=== PATIENT | female | born 1985 | race Caucasian/White ===

== ENCOUNTER 2018-12-21 03:10 | Inpatient (IN) | payer BC, OTHER ==
[2018-12-21] MEDS ORDERED: Lactated Ringers 1,000 ML IV ONE (03:47)
[2018-12-21] MEDS ORDERED: Indomethacin 25 MG Cap PO ONE (04:12)
[2018-12-21] MEDS: Lactated Ringers 1,000 ML IV SCH ×4 (04:30→18:20)
[2018-12-21] MEDS ORDERED: NIFEdipine 30 MG Tab.ER PO ONE (04:50)
[2018-12-21] MEDS: fentaNYL 100 MCG/2 ML SDV IVPUSH PRN ×4 (04:54→16:31)
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
[2018-12-21] MEDS: NIFEdipine 10 MG Cap PO SCH ×4 (05:29→18:58)
[2018-12-21] MEDS ORDERED: NIFEdipine 10 MG Cap PO SCH (09:00)
[2018-12-21] MEDS: Indomethacin 25 MG Cap PO SCH ×2 (09:35→16:31)
[2018-12-21] MEDS ORDERED: Oxytocin/Normal Saline 30 UNIT/500 ML BAG IV SCH (17:15)
[2018-12-21] MEDS ORDERED: Misoprostol 400 MCG (4 X 100 MCG TAB) RECTAL PRN (17:24)
[2018-12-21] MEDS ORDERED: Tranexamic Acid 1,000 MG in Sodium Chloride 0.9% 100 ML IV PRN (17:24)
[2018-12-21] MEDS ORDERED: Carboprost Tromethamine 250 MCG/1 ML Amp IM PRN (17:24)
[2018-12-21] MEDS ORDERED: Methylergonovine 0.2 MG/1 ML Amp IM PRN (17:24)
[2018-12-21] MEDS ORDERED: Lidocaine 1% 30 ML SDV INJECT PRN (17:24)
[2018-12-21] MEDS ORDERED: Lactated Ringers 500 ML IV ONE (17:24)
[2018-12-21] MEDS ORDERED: Ondansetron 4 MG/2 ML SDV IV PRN (17:24)
[2018-12-21] MEDS ORDERED: Acetaminophen 325 MG Tab PO PRN (17:24)
[2018-12-21] MEDS ORDERED: fentaNYL 100 MCG/2 ML SDV ONE (17:47)
[2018-12-21] MEDS ORDERED: Sodium Bicarbonate 4.2% 2.5 MEQ/5 ML SDV ONE (17:48)
[2018-12-21] MEDS ORDERED: ePHEDrine 50 MG/ML SDV ONE (17:51)
--- NOTE | 2018-12-21 18:14 | PCM.SN ---
- Free Text/Narrative Note: Intrathecal. Sitting position, sterile prep and drape. 1% lidocaine w bicarb for skinwheal to L2 L3 interspace, introducer, 24 ga pencan x 1. Pos CSF, neg heme, neg parasthesia. 20 mcg pf sufenta, 30 mcg pf fentanyl, 0.4 ml pf ns and 6 mg of 0.75% pf bupivacaine injected after CSF aspiration. Pt to L lateral position after 60 seconds. procedure time 1750 to 1820
[2018-12-21] MEDS ORDERED: diphenhydrAMINE 50 MG/ML SDV IVPUSH PRN ×2 (18:19→22:24)
[2018-12-21] MEDS ORDERED: Ondansetron 4 MG/2 ML SDV IVPUSH PRN (22:24)
[2018-12-21] MEDS ORDERED: Naloxone 2 MG/2 ML Syringe IVPUSH PRN (22:24)
[2018-12-21] MEDS ORDERED: diphenhydrAMINE 25 MG Tab PO PRN (22:24)
[2018-12-21] MEDS ORDERED: Morphine PF 30 MG/30 ML PCA Vial IV SCH (22:30)
[2018-12-21] MEDS ORDERED: Simethicone 80 MG Tab.Chew PO PRN (22:56)
[2018-12-21] MEDS ORDERED: Ibuprofen 800 MG Tab PO PRN (22:56)
[2018-12-21] MEDS ORDERED: Docusate Sodium 100 MG Cap PO PRN (22:56)
[2018-12-21] MEDS ORDERED: Benzocaine/Menthol 20%-0.5% Spray 56 GM Canister TOP PRN (22:56)
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
--- NOTE | 2018-12-22 02:54 | DEL ---
DATE: 12/21/2018 PREPROCEDURE DIAGNOSES: 1. 22 and 0/7 weeks' intrauterine . 2. 2, para 0-0-1-0. 3. History of spontaneous x1. 4. labor in second trimester. POSTPROCEDURE DIAGNOSES: 1. 22 and 0/7 weeks' intrauterine . 2. 2, para 0-1-1-0. 3. History of spontaneous x1. 4. labor in second trimester. 5. Delivery of liveborn female , pre-age of viability. BRIEF HISTORY: The patient is a 33-year-old with the above-listed diagnoses, who presented to the hospital just under 21 hours ago with spontaneous onset of contractions. She was evaluated and ruled out for obvious infection; treated with tocolytics including indomethacin and nifedipine, which did control the contractions for a period of time; however, she broke through those medications and went into spontaneous labor. She had an intrathecal in saddle block fashion for pain management; however, that wore off prior to actual delivery. From 4-5 cm on, the patient was provided with DONOR SERVICES MANAGER of morphine for pain control and ultimately had uncomplicated vaginal delivery as below. DETAILS: With the patient in dorsal lithotomy position, she delivered a living female at previability age over intact perineum. During pushing, there was a bulging bag that ruptured and then after that baby delivered in the vertex ROBERT position. Baby was alive and moving at the time of delivery. The 3-vessel umbilical cord was quickly clamped and cut and baby given to the parents for some bonding. Placenta took just under half an hour to deliver by expression, and was inspected and intact. Samples will be taken for analysis as the parents are requesting further evaluation. The labia and vagina were inspected and intact. COMPLICATIONS: None. ESTIMATED BLOOD LOSS: 350 mL. FINDINGS: Liveborn, 22 weeks' gestation female, who did not have any advanced resuscitation as she is previability age. Parents will be allowed to do some bonding, and after the child expires, we will collect the necessary tissue samples to send for chromosomal analysis as parents have requested this be performed. score, weight, and length measurements have not yet been determined. [facility] /[id number] JENNIE
[2018-12-22] MEDS: Famotidine 20 MG/2 ML SDV IVPUSH SCH ×2 (06:51→08:19)
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
--- NOTE | 2018-12-22 17:22 | DISCH ---
ADMITTING DIAGNOSES: 1. labor in the second trimester. 2. History of miscarriage, currently . DISCHARGE DIAGNOSES: 1. labor in the second trimester. 2. History of miscarriage, currently . 3. Status post a delivery at 22 weeks' gestation of a liveborn female who later approximately 1 hour and 45 minutes of age because of extreme prematurity status. BRIEF HISTORY: A 33-year-old 2, para 0-0-1-0, at time of admission; 2, para 0-1-1-0, at time of discharge, who presented to the hospital with spontaneous onset of labor. Initial cervical length was 2.5 cm, and she was given tocolytics with indomethacin and nifedipine, which initially slowed the contractions; however, she went on to break through, and after having an intrathecal for pain management. Intrathecal wore off prior to actual delivery, she was given a morphine UNIFORMER at that time and went on to have uncomplicated spontaneous vaginal delivery with passage of the placenta in less than 30 minutes after delivery of the baby. There was no major hemorrhage at that time, and she tolerated things quite well with no lacerations. HOSPITAL COURSE: Since time of delivery, she has been doing well. Ambulating, tolerating regular diet. Appropriately grieving for her loss and going through the typical process and overall managing quite well. No delayed bleeding. DISCHARGE CONDITION: Good. See today's progress note for further evaluation and today's exam. DISPOSITION: Home with family. MEDICATIONS: Ibuprofen 800 mg every 8 hours as needed for pain, Tylenol 650 mg every 6 hours as needed for pain, vitamin continue 1 daily. FOLLOWUP: Encouraged to see Dr. Duke next week for recheck of her emotional status and anticipate 6-week exam. INSTRUCTIONS: Routine postvaginal delivery instructions were given regarding returning for evaluation if she develops any heavy bleeding, foul-smelling drainage or discharge, uterine tenderness, fever, chills, or any other concerns. Also encouraged to seek out additional information for grieving a loss and continue to work with her neck band setter in charge on that. Tissue samples were sent for chromosomal microarray analysis, and prior to having another child, I have encouraged them to have a consultation appointment with FOLDER OPERATOR, possibly even Maternal- Medicine for more specific information and review of their potential risk factors. All of their questions were answered. [facility] /[id number] MTDD
== END 2018-12-22 14:15 | disposition home or self-care (01) | DRG 560 ==
LOC: DL.ED 03:10 → DL.OB 03:47 → OBSVTOIN 23:46
PROVIDERS: ADMIT Family Medicine; ATTEND Family Medicine
PROC: 10E0XZZ Delivery of Products of Conception, External Approach (ICD-10-PCS; principal; 2018-12-21)
DX: O60.12X0 Preterm labor second trimester with preterm delivery second trimester, not applicable or unspecified (principal); Z3A.22 22 weeks gestation of pregnancy; Z37.0 Single live birth
CPT/HCPCS: 36415; 59409; 76815; 76817; 81001; 85025; 85027; 86850; 86900; 86901; 86920; 86922; 87210; A9270-GY; J2274; J2405; J2590; J3010; J7120